=== PATIENT | male | born 1960 | race Caucasian/White ===

== ENCOUNTER 2020-01-30 11:06 | Emergency (ER) | payer BC, SELFPAY ==
--- NOTE | 2020-01-30 11:14 | ED.BACK ---
HPI - Back Pain/Injury <Eliane Baez PA-C - Last Filed: 01/30/20 12:31> General Chief Complaint: Back Pain/Injury Stated Complaint: severe left sided lumbar pain x1 day Time Seen by Provider: 01/30/20 11:13 Source: patient Mode of arrival: Ambulatory Limitations: no limitations History of Present Illness HPI Narrative: This is a 59-year-old gentleman with a history of hypertension hyperlipidemia and previous back surgeries in his lumbar spine who presents with muscle spasm and pain in his left low back. He is vacationing, has been very active with outdoor activities, kayaking etc. has been sleeping in his van while traveling and does not remember any specific injury occurring to cause his pain. He woke up yesterday morning with back discomfort and felt he was having a muscle spasm. During the day yesterday this seemed to generally improve and he did his normal activities including going hiking. But later in the evening yesterday his pain became more severe, he has been having kind of a constant low level pain and sometimes spasming intense pain a muscle on the left side of his low back. His pain has affected his posture today making him stand slightly odd angle because of the discomfort and spasming. He states he has not had any recent back issues or injuries. His back surgery was 15 years ago. He denies any urinary symptoms although he does feel like he has possibly been peeing more often. He denies headache, fever, chills, nausea, vomiting, saddle paresthesia, loss of bowel or bladder function, numbness or tingling of his lower extremities, abdominal pain, chest pain, constipation, diarrhea or dysuria. MD Complaint: back pain Onset (ago): day(s) (1) Duration: intermittent Similar Symptoms Previously: No Location: lumbar spine and left flank Severity: severe Quality: aching and spasming Radiation: none Severity scale (1-10): 7 Relieving factors: immobilization and other (Standing) Exacerbating factors: movement, sitting upright, walking and lifting Context: unknown and other (A lot of physical activity recently) Associated symptoms: denies other symptoms Related Data Home Medications Medication Instructions Recorded Confirmed aspirin 81 mg PO DAILY 01/30/20 01/30/20 atorvastatin 40 mg PO DAILY 01/30/20 01/30/20 metoprolol tartrate 12.5 mg PO BID 01/30/20 01/30/20 Previous Rx's Medication Instructions Recorded baclofen 5 mg PO TID #21 tab MDD 15mg 01/30/20 lidocaine 1 patch TOP DAILY #15 each 01/30/20 Allergies Allergy/AdvReac Type Severity Reaction Status Date / Time No Known Drug Allergies Allergy Verified 01/30/20 11:21 Review of Systems <Eliane Baez PA-C - Last Filed: 01/30/20 12:31> Review of Systems Narrative: GENERAL: Denies chills, fatigue, malaise, fever, sweats. HEENT: Denies sinus pain, ear pain, sore throat, difficulty swallowing, dizziness. RESPIRATORY: Denies dyspnea, cough, wheezing, hemoptysis, sputum. CARDIOVASCULAR: Denies chest pain, palpitations, orthopnea, edema, GASTROINTESTINAL: Denies nausea, vomiting, abdominal pain, diarrhea, constipation, melena. : Denies dysuria, frequency, incontinence, hematuria, urinary retention. MUSCULOSKELETAL: Positive for pain and tenderness of the left side of his back low just above his hip with spasming, positive for change in posture due to left lower back pain denies weakness, joint pain, or bony pain SKIN: Denies rash, skin lesions, or other NEUROLOGIC: Denies weakness, headache, numbness, change in speech, confusion, seizures, incoordination. PSYCHIATRIC: No concerning psychosocial issues. 12 point review of systems is negative except for those stated above Patient History <Eliane Baez PA-C - Last Filed: 01/30/20 12:31> Social History Smoking Status: Never smoker Exam <Eliane Baez PA-C - Last Filed: 01/30/20 12:31> Narrative Exam Narrative: GENERAL: 59 year old patient appears stated age. Well-nourished, well-developed patient, in moderate distress. HEAD: Atraumatic. Normocephalic. EYES: Pupils equal round and reactive. Extraocular motions intact. No scleral icterus. No injection or drainage. ENT: Nose without bleeding, purulent drainage. Throat without erythema, tonsillar hypertrophy or exudate. Airway patent. NECK: Trachea midline. Non tender CARDIOVASCULAR: Regular rate and rhythm without murmurs, gallops, or rubs. RESPIRATORY: Clear to auscultation. Breath sounds equal bilaterally. No wheezes, rales, or rhonchi. GASTROINTESTINAL: Abdomen soft, non-tender, nondistended. EXTREMITIES: No edema or joint tenderness. BACK: There is tenderness above the iliac crest lateral to the lumbar spine, there is reduced range of motion with forward flexion at the waist, flexion of the hip of the left leg and extension of the hip at the left leg 2nd to pain. There is no increased pain with at at abduction or adduction. Otherwise Nontender without deformity or crepitance. No flank tenderness. NEURO: AOx3. SKIN: No rash or erythema of visible areas Initial Vital Signs Initial Vital Signs: Vital Signs Temperature 98.0 F 01/30/20 11:17 Pulse Rate 70 01/30/20 11:17 Respiratory Rate 18 01/30/20 11:17 Blood Pressure 174/81 H 01/30/20 11:17 Pulse Oximetry 100 01/30/20 11:17 <DO Nia Okeefe Last Filed: 02/01/20 07:07> Initial Vital Signs Initial Vital Signs: Vital Signs Temperature 98.0 F 01/30/20 11:17 Pulse Rate 70 01/30/20 11:17 Respiratory Rate 18 01/30/20 11:17 Blood Pressure 174/81 H 01/30/20 11:17 Pulse Oximetry 100 01/30/20 11:17 Scores <ADÁN Sparrow Last Filed: 01/30/20 12:31> GCS [place] coma scale eye opening: Spontaneous [place] coma scale verbal response: Orientated [place] coma scale motor response: Obey commands [place] coma scale total score: 15 Course <ADÁN Sparrow Last Filed: 01/30/20 12:31> Orders Ordered: Discontinued Medications Ketorolac Tromethamine (Toradol) 15 mg IM NOW ONE Stop: 01/30/20 11:27 Last Admin: 01/30/20 11:40 Dose: 15 mg Documented by: MASON Vital Signs Vital signs: Vital Signs - 8 hr 01/30/20 11:17 01/30/20 11:53 01/30/20 11:59 Temperature 98.0 F 98.5 F Pulse Rate 70 70 Respiratory Rate 18 Blood Pressure 174/81 H 151/89 H Pulse Oximetry 100 97 <DO Nia Okeefe Filed: 02/01/20 07:07> Orders Ordered: Discontinued Medications Ketorolac Tromethamine (Toradol) 15 mg IM NOW ONE Stop: 01/30/20 11:27 Last Admin: 01/30/20 11:40 Dose: 15 mg Documented by: MASON Vital Signs Vital signs: Vital Signs - 8 hr 01/30/20 11:17 01/30/20 11:53 01/30/20 11:59 Temperature 98.0 F 98.5 F Pulse Rate 70 70 Respiratory Rate 18 Blood Pressure 174/81 H 151/89 H Pulse Oximetry 100 97 MDM - Back Pain/Injury <Eliane Baez PA-C - Last Filed: 01/30/20 12:31> Differential Diagnosis Differential diagnosis: Likely lumbar radiculopathy, sciatica, strain of lumbar region and other (UTI, muscle spasm) Medical Records Attestation: I reviewed the patient's medical records. Lab Data Attestation: I reviewed the patient's lab results. Lab results narrative: No UTI Labs: Urine Dip Bedside Urine Glucose Negative Bedside Urine Bilirubin + 1 Bedside Urine Ketone +/- 5 Urine Specific [place] 1.025 Bedside Urine Occult Blood - Negative Bedside Urine pH 6.0 Bedside Urine Protein +/- 15 Bedside Urine Urobilinogen - Negative Bedside Urine Nitrite - Negative Bedside Urine Leukocytes - Negative Esterase MDM Narrative Medical decision making narrative: 59-year-old with history of hyperlipidemia, lumbar back surgery and hypertension presents with left-sided low back muscle pain. After very frequent physical outdoor activities over the last few days. Imaging is not obtained as he has no spinal tenderness no bony tenderness of his hip or pelvis. Pain is consistent with a muscle strain and spasm, his urine looks good, he has no red flag symptoms. I have low suspicion for an acute abdominal process or life-threatening illness. He is discharged with plan for follow-up, muscle anti spastic medication, and lidocaine patches. Emergency return precautions provided, all questions answered. <Aubree Flores DO - Last Filed: 02/01/20 07:07> Lab Data Labs: Urine Dip Bedside Urine Glucose Negative Bedside Urine Bilirubin + 1 Bedside Urine Ketone +/- 5 Urine Specific [place] 1.025 Bedside Urine Occult Blood - Negative Bedside Urine pH 6.0 Bedside Urine Protein +/- 15 Bedside Urine Urobilinogen - Negative Bedside Urine Nitrite - Negative Bedside Urine Leukocytes - Negative Esterase Discharge Plan Departure Patient Disposition: Home Clinical Impression: Muscle spasm of back Strain of lumbar region Qualifiers: Encounter type: initial encounter Qualified Code(s): S39.012A - Strain of muscle, fascia and tendon of lower back, initial encounter Discharge Date/Time: 01/30/20 12:01 Instructions: DI for Back Spasm, DI for Back Strain or Sprain Activity Restrictions/Additional Instructions: Thank you for letting us be part of your care in the emergency department today. I believe that you have a strain of your muscle in your lower back on the left side, and you have been having spasming with this, I have prescribed a muscle relaxer to help you with spasms. I generally recommend alternating ice and heat or do what feels best to you, if it feels best just use heat if ice feels best you can do ice. Ice is more helpful in the immediate aftermath of your injury 24 to up to 48 hours, heat is generally more helpful after that. I recommend you do some gentle stretching, massage may be helpful as well. Tylenol and ibuprofen are your best option for pain, and I am also prescribing a lidocaine patch that you can apply to the area of discomfort for up to 12 hours a day. There is no evidence of an emergent or life threatening illness at this time, but follow up with your doctor in 1-2 days is recommended nonetheless to continue to rule out serious underlying causes of your symptoms. Please call the office for an appointment. Please return to the Emergency Department for any worsening or persistent symptoms. Please take medications as directed. I have included information on [facility] if you need to make a plan for a follow-up appointment if he did not have a local regular provider. There is also a walk-in clinic associated with the hospital that you could go to for follow-up. Prescriptions: New baclofen 5 mg tablet 5 mg PO TID MDD 15mg Qty: 21 RF: 0 lidocaine 5 % adhesive patch,medicated 1 patch TOP DAILY Qty: 15 RF: 0 No Action atorvastatin 40 mg tablet 40 mg PO DAILY RF: 0 aspirin 81 mg tablet,delayed release (DR/EC) 81 mg PO DAILY RF: 0 metoprolol tartrate 25 mg tablet 12.5 mg PO BID RF: 0 Referrals: [facility] [Outside] <Aubree Flores, - Last Filed: 02/01/20 07:07> Cosign ED Attending Maribellature Attestation: I was immediately available in the department for consultation. Documentation has been reviewed. I agree with assessment and plan.
[2020-01-30 11:17] VITALS: BP 174/81; PULSE 70; RESP 18; TEMP 36.7; O2SAT 100
[2020-01-30] MEDS: KETOROLAC 60 MG/2 ML VIAL 15 MG IM (11:40)
[2020-01-30 11:53] VITALS: BP 151/89; PULSE 70; O2SAT 97
[2020-01-30 11:59] VITALS: TEMP 36.9
== END 2020-01-30 12:01 | disposition home or self-care (01) ==
PROVIDERS: Emergency Provider Student in an Organized Health Care Education/Training Program
DX: M62.830 Muscle spasm of back (principal); S39.012A Strain of muscle, fascia and tendon of lower back, initial encounter
CPT/HCPCS: 81003; 96372; 99283; J1885